=== PATIENT | female | born 1960 | race Caucasian/White ===

== ENCOUNTER 2016-11-30 13:19 | Emergency (ER) | payer OTHER ==
[2016-11-30 14:57] LABS: ABSOLUTE NEUTROPHIL COUNT 5.2 K/mm3 (1.8-7.7); BASO % 0.3 % (0.2-1.0); EOS # 0.2 (0.0-0.5); HEMATOCRIT 43.4 % (37.0-47.0); HEMOGLOBIN 13.9 gm/l (12.0-16.0); IMM NEUT% 0.1 % (0-1); LYMPH # 1.8 (1.0-4.8); LYMPH % 23.5 % (15-45); MEAN CELL VOLUME 85.8 fl (81.0-99.0); MEAN CORPUSCULAR HEMOGLOBIN 27.5 pg (27.0-31.0); MEAN PLATELET VOLUME 11.2 fl (7.4-10.4); MONO # 0.3 (0.0-0.8); NEUT % 70.1 % (43-75); PLATELET COUNT 164 K/mm3 (130-400); RED CELL DISTRIBUTION WIDTH 14.5 % (11.5-14.5)
--- NOTE | 2016-11-30 15:10 | RAD ---
11/30/2016 3:05 PM CHEST - 2 VIEWS History: Shortness of breath and cough Comparison: 11/28/2016 Findings: Two views of the chest are obtained. The lungs again demonstrate findings of probable venous congestion. There is increasing bibasilar airspace opacity in comparison to prior study. The cardiomediastinal silhouette enlarged but stable. The osseous structures are intact.. Single lead left-sided pacemaker is present with lead terminating in expected region of the right ventricle. IMPRESSION: Worsening bibasilar airspace opacity with venous congestion. Findings are worrisome for volume overload and impending failure though multifocal pneumonia could potentially have this appearance. No effusion is present.
[2016-11-30] MEDS ORDERED: SODIUM CHLORIDE 0.9% 1,000 ML ONE (15:17)
[2016-11-30 15:46] LABS: ALB/GLOB RATIO 1.2 (>1.0); ALBUMIN 3.9 gm/dL (3.5-5.7); CALCIUM 9.1 mg/dL (8.6-10.3)
[2016-11-30] MEDS ORDERED: FUROSEMIDE 40 MG/4 ML VIAL ONE (17:04)
== END 2016-11-30 17:38 | disposition home or self-care (01) ==
LOC: ED 13:19
DX: I50.9 Heart failure, unspecified (principal); R00.1 Bradycardia, unspecified; Z95.810 Presence of automatic (implantable) cardiac defibrillator; E03.9 Hypothyroidism, unspecified
CPT/HCPCS: 83605; 83880; 85025; 87070; 87040 ×2; 80053; 87205; 36415 ×2; 71020; 99284 ×2; 96374; J1940; J7030